=== PATIENT | male | born 1995 | race Caucasian/White ===

== ENCOUNTER 2016-12-30 09:17 | Emergency (ER) | payer BC ==
[~2016-12-30] VITALS: Wt 136.0 kg
[2016-12-30] MEDS ORDERED: LORAZEPAM 1 MG TAB PO ONE (10:30)
--- NOTE | 2016-12-30 10:41 | ERD ---
ER Documentation Chief Complaint Date/Time DATE: 12/30/16 TIME: 10:37 Chief Complaint tingling to lips and head since 3 days ago. no neuro def. mild law,no trauma HPI This is a 21-year-old male who presents to the emergency department today complaining of numbness and tingling in his hands and arms and around his lips and face and up the back of his neck. Patient states that he "feels a rash coming through my body". 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 Patient states that he previously had taken medication for anxiety as he had 2 panic attacks in the past when he could not breathe. States he is no longer taking the medication. States he has had some nausea but no vomiting. States he has had some blurred vision. States he had a in the family last week in the family member of a stroke and he is "scared that I am having a stroke". Denies any sick contacts, fevers or chills. States that his symptoms have improved since coming to the emergency department. ROS All systems reviewed and are negative except as per history of present illness. Medications Home Meds No Active Prescriptions or Reported Meds Allergies Allergies: Coded Allergies: No Known Allergy (Unverified , 08/31/15) PMhx/Soc Hx Alcohol Use: No Hx Substance Use: No Hx Tobacco Use: No Physical Exam Vitals Vital Signs Date Time Temp Pulse Resp B/P Pulse Ox O2 Delivery O2 Flow Rate FiO2 12/30/16 09:19 98.4 67 21 155/91 98 Physical Exam Const: Talkative, no acute distress. Head: Atraumatic Eyes: Normal Conjunctiva. PERRLA. EOM intact. ENT: Right ear with cerumen impaction. Left ear TM normal. Nose no drainage. Throat no erythema no exudate. Neck: Full range of motion..~ No meningismus. Resp: Clear to auscultation bilaterally Cardio: Regular rate and rhythm, no murmurs Abd: Soft, non tender, non distended. Normal bowel sounds Skin: No petechiae or rashes Ext: No cyanosis, or edema med admin strength. Medical Practitioners strength 5 out of 5. No pronator drift. Neur: Awake and alert. No focal neurologic deficits. No gait ataxia. Psych: Normal Mood and Affect Results 24 hrs Current Medications Medications (Trade) Dose Ordered Sig/Cole Route PRN Reason Start Time Stop Time Status Last Admin Dose Admin Lorazepam (Ativan) 1 mg ONCE ONCE PO 12/30/16 10:30 12/30/16 10:31 DC 12/30/16 10:42 Procedures/MDM This is a 21-year-old male who presents to the emergency department today with multiple complaints. Patient's symptoms have been intermittent since Thursday. Patient's symptoms of numbness and tingling in his hands and feet, nausea, intermittent blurry vision and "feeling a hdz coming through his body" are most consistent with symptoms of anxiety. Patient has had anxiety and 2 panic attacks in the past however he stopped taking his medication as he did not like the way it made him feel. Patient does have high blood pressure and currently takes atenolol. States he was given that medication because he was having palpitations at the time when he originally had symptoms. Patient denied any palpitations currently however given his history and history of high blood pressure I did obtain an EKG per patient is afebrile and otherwise well- appearing. He is talkative in the exam room. He indicated that his symptoms have improved since coming to the emergency department. Patient was mostly concerned that he was having a stroke. Patient has no focal neurologic deficits and no gait ataxia. I do not feel the patient requires a head CT scan at this time. Low suspicion for acute hemorrhage, mass, abscess. EKG read and interpreted by Dr. Freedman Rate [address] elevation. No QT prolongation. Sinus bradycardia. Low suspicion for acute SC, PE, pericarditis. Patient was given lorazepam here in the emergency department and symptoms improved. Symptoms at this time is consistent with anxiety.. I will not give him a prescription for home however he has been instructed to keep his appointment today with his primary care physician at 230. Patient understood. At this time the patient is stable for discharge and outpatient management. Patient should follow up with their PCP in the next 1-2 days. They may return to the emergency department sooner for any persistent or worsening of symptoms. Patient understood and agreed with the plan. Discussed the patient with Dr. Vega and he is in agreement with the plan. Departure Diagnosis: Primary Impression: Numbness and tingling sensation of skin Additional Impression: Anxiety Condition: Fair EZEKIEL TY PA-C Dec 30, 2016 10:41
[2016-12-30 11:35] VITALS: BP 122/74; PULSE 62; RESP 20; TEMP 98.2
== END 2016-12-30 11:37 | disposition home or self-care (01) ==
LOC: FTE 09:17
DX: R20.0 Anesthesia of skin (principal); R20.2 Paresthesia of skin; F41.9 Anxiety disorder, unspecified; R06.02 Shortness of breath; I10 Essential (primary) hypertension
CPT/HCPCS: 93005; Z7502; Z7610